=== PATIENT | female | born 1985 | race Caucasian/White ===

== ENCOUNTER 2017-10-16 21:48 | Inpatient (IN) | payer OTHER ==
[~2017-10-16] VITALS: Ht 162.6 cm; Wt 72.6 kg
[2017-10-16] MEDS ORDERED: PRENATAL + DHA1 EAC1 PO (22:53)
[2017-10-16] MEDS ORDERED: HUMALOG100 UNIT/1 SUBCUTANEO (22:56)
[2017-10-16] MEDS ORDERED: ZANTAC 7575 MG PO (22:57)
[2017-10-23] MEDS ORDERED: ALDOMET500 MG PO (13:16)
== END 2017-10-23 14:12 | DRG 775 ==
LOC: LDR 21:48 → OB/GYN 21:48 → LDR 10-20 01:26 → OB/GYN 10-21 15:26
PROC: 4A1HXCZ Monitoring of Products of Conception, Cardiac Rate, External Approach (ICD-10-PCS; 2017-10-16)
PROC: 10E0XZZ Delivery of Products of Conception, External Approach (ICD-10-PCS; principal; 2017-10-20)
PROC: 0W8NXZZ Division of Female Perineum, External Approach (ICD-10-PCS; 2017-10-20)
PROC: 10907ZC Drainage of Amniotic Fluid, Therapeutic from Products of Conception, Via Natural or Artificial Opening (ICD-10-PCS; 2017-10-20)
PROC: 3E033VJ Introduction of Other Hormone into Peripheral Vein, Percutaneous Approach (ICD-10-PCS; 2017-10-20)
PROC: 4A033R1 Measurement of Arterial Saturation, Peripheral, Percutaneous Approach (ICD-10-PCS; 2017-10-20)
DX: O60.14X0 Preterm labor third trimester with preterm delivery third trimester, not applicable or unspecified (principal); O99.824 Streptococcus B carrier state complicating childbirth; O24.424 Gestational diabetes mellitus in childbirth, insulin controlled; O13.4 Gestational [pregnancy-induced] hypertension without significant proteinuria, complicating childbirth; Z3A.36 36 weeks gestation of pregnancy; Z37.0 Single live birth